=== PATIENT | male | born 2000 | race African-American/Black ===

== ENCOUNTER 2022-10-26 21:55 | Emergency (ER) | payer OTHER ==
[2022-10-26 22:13] VITALS: BP 108/56; PULSE 83; RESP 18; TEMP 98; BMI 27.5
[2022-10-26] MEDS ORDERED: KETOROLAC TROMETHAMINE 15 MG/ML VIAL IVPUSH ONE (23:04)
[2022-10-26] MEDS ORDERED: SODIUM CHLORIDE 0.9% 500 ML INFUS.BAG IV ONE (23:04)
[2022-10-26] MEDS ORDERED: KETOROLAC TROMETHAMINE 15 MG/ML VIAL ONE (23:24)
[2022-10-26 23:30] LABS: BASO % 0.8 % (0-2.0); EOS % 0.8 % (0-4.5); HEMATOCRIT 39.1 % (35.4-49); HEMOGLOBIN 13.5 GM/dL (11.7-16.9); LYMPH % 41.1 % (8-40); MCH 29.9 pg (25.7-33.7); MCHC 34.4 g/dl (32.0-35.9); MEAN CELL VOLUME 86.8 fl (80-96); MEAN PLT VOLUME 7.5 fl (7.5-11.1); MONO % 6.6 % (3.8-10.2); NEUT % 50.7 % (42.8-82.8); PLATELET COUNT 191 10^3/uL (134-434); RBC 4.51 M/mm3 (4.00-5.60); RDW 13.5 % (11.9-15.9); WHITE BLOOD COUNT 6.5 K/mm3 (4.0-10.0)
[2022-10-26 23:58] LABS: POTASSIUM 3.7 mmol/L (3.5-5.1)
[2022-10-27 00:02] LABS: ALBUMIN 3.8 g/dl (3.4-5.0); BLOOD UREA NITROGEN 7.6 mg/dL (7-18); CALCIUM 8.9 mg/dL (8.5-10.1)
[2022-10-27 00:05] LABS: CREATININE 0.8 mg/dL (0.55-1.3)
[2022-10-27 00:07] LABS: BILIRUBIN,TOTAL 0.4 mg/dL (0.2-1); TOT PROT 7.3 g/dl (6.4-8.2)
== END 2022-10-27 00:19 | disposition home or self-care (01) ==
LOC: JER 21:55
PROC: 3E033NZ Introduction of Analgesics, Hypnotics, Sedatives into Peripheral Vein, Percutaneous Approach (ICD-10-PCS; principal; 2022-10-26)
DX: R07.89 Other chest pain (principal)
CPT/HCPCS: 36415; 71046-TC-FY; 80053; 83735; 84484; 85025; 93005; 93010; 99285-25